=== PATIENT | female | born 1990 | race Caucasian/White ===

== ENCOUNTER 2016-12-22 09:00 | Outpatient (CLI) | payer OTHER ==
[~2016-12-22] VITALS: Ht 160 cm; Wt 131.5 kg
[2016-12-22 09:06] VITALS: BP 147/93
[2016-12-22] MEDS ORDERED: LEVO150T6 PO (09:13)
[2016-12-22 09:28] LABS: BASOPHILS % (AUTO) 0 % (0-10); EOSINOPHILS # (AUTO) 0.3 10^3/uL (0.0-0.3); EOSINOPHILS % (AUTO) 3 % (0-10); LYMPHOCYTES # (AUTO) 1.7 X 10^3 (1.0-4.0); LYMPHOCYTES % (AUTO) 18 % (12-44); MEAN CORPUSCULAR HEMOGLOBIN 31 PG (25-34); MEAN CORPUSCULAR HGB CONC 33 G/DL (32-36); MEAN CORPUSCULAR VOLUME 96 FL (80-99); MEAN PLATELET VOLUME 9.6 FL (7.4-10.4); MONOCYTES # (AUTO) 0.5 X 10^3 (0.0-1.0); MONOCYTES % (AUTO) 5 % (0-12); NEUTROPHILS # (AUTO) 6.9 X 10^3 (1.8-7.8); NEUTROPHILS % (AUTO) 73 % (42-75); PLATELET COUNT 264 10^3/uL (130-400); RED BLOOD COUNT 3.98 10^6/uL (4.35-5.85); RED CELL DISTRIBUTION WIDTH 15.6 % (10.0-14.5); WHITE BLOOD COUNT 9.5 10^3/uL (4.3-11.0)
== END 2016-12-22 09:20 | disposition home or self-care (01) ==
LOC: PREOP 09:00
PROVIDERS: ATTEND Surgery
DX: Z01.812 Encounter for preprocedural laboratory examination (principal); Z11.2 Encounter for screening for other bacterial diseases; K80.20 Calculus of gallbladder without cholecystitis without obstruction
CPT/HCPCS: 36415; 85025; 87081

== ENCOUNTER 2016-12-29 10:08 | Day surgery (SDC) | payer OTHER ==
[~2016-12-29] VITALS: Ht 160 cm; Wt 131.5 kg
[2016-12-29 10:08] VITALS: BP 171/92
[~2016-12-29 10:08] MED LIST: LEVO150T6 PO
[2016-12-29] MEDS ORDERED: ceFAZolin 2 GM/NS 50 ML IV ONE (10:45)
[2016-12-29] MEDS ORDERED: MIDAZOLAM 2 MG/2 ML (VERSED) VIAL IV ONE (11:00)
[2016-12-29] MEDS: LACTATED RINGERS 1,000 ML IV PRN ×3 (11:21→14:11)
[2016-12-29] MEDS ORDERED: SEVOFLURANE (ULTANE) 15 ML INHAL SOLN ONE ×4 (11:35→13:54)
[2016-12-29] MEDS ORDERED: SUCCINYLCHOLINE INJ 100 MG/5 ML SYR ONE (11:35)
[2016-12-29] MEDS ORDERED: LIDOCAINE PF 2% 5 ML (XYLOCAINE) VIAL ONE (11:35)
[2016-12-29] MEDS ORDERED: LACTATED RINGERS 1,000 ML IV ONE ×3 (11:35→14:06)
[2016-12-29] MEDS ORDERED: ROCURONIUM 50 MG/5 ML (ZEMURON) VIAL IV ONE (11:35)
[2016-12-29] MEDS ORDERED: proPOfol 200 MG/20 ML (DIPRIVAN) VIAL IV ONE (11:35)
[2016-12-29] MEDS ORDERED: fentaNYL INJECTION 100 MCG/2 ML AMP ONE ×3 (11:36→14:43)
[2016-12-29] MEDS ORDERED: MIDAZOLAM 2 MG/2 ML (VERSED) VIAL ONE (11:36)
[2016-12-29] MEDS ORDERED: LIDOCAINE/EPI 1%-1:100,000 (XYLOCAINE) 20ML ONE (11:44)
--- NOTE | 2016-12-29 12:14 | Progress Note-Pre Operative ---
Pre-Operative Progress Note H&P Reviewed The H&P was reviewed, patient examined and no changes noted. Date H&P Reviewed: December 29, 2016 Time H&P Reviewed: 12:08 Pre-Operative Diagnosis: Cholelithiasis/Cholecystitis KOLBY DUTTON DO December 29, 2016 12:14
[2016-12-29] MEDS ORDERED: ceFAZolin 1,000 MG (ANCEF) VIAL ONE (12:54)
[2016-12-29] MEDS ORDERED: ONDANSETRON 4 MG/2 ML (SDV) Z0FRAN ONE ×2 (12:54→14:22)
[2016-12-29] MEDS ORDERED: GLYCOPYRROLATE 0.2 MG/ML (ROBINUL) 2 ML VIAL ONE (12:55)
[2016-12-29] MEDS ORDERED: NEOSTIGMINE (BLOXIVERZ ) 1 MG/1ML 10 ML VIAL ONE (12:55)
[2016-12-29] MEDS ORDERED: fentaNYL INJECTION 100 MCG/2 ML AMP IVP PRN (13:00)
[2016-12-29] MEDS ORDERED: ONDANSETRON 4 MG/2 ML (SDV) Z0FRAN IVP PRN (13:00)
[2016-12-29] MEDS ORDERED: MEPERIDINE (DEMEROL) INJ 50 MG/ML ONE (13:24)
[2016-12-29] MEDS ORDERED: morphine INJ 10 MG/ML 1ML (SYR OR VIAL) ONE (13:24)
--- NOTE | 2016-12-29 13:38 | Progress Note-Post Operative ---
Post-Operative Progess Note Surgeon (s)/Welt Rougher (s) Surgeon KOLBY DUTTON DO Welt Rougher: [place]ora Pre-Operative Diagnosis Cholelithiasis/Cholecystitis Post-Operative Diagnosis Same + adhesions, [facility] Procedure & Operative Findings Date of Procedure 12/29/16 Procedure Performed/Findings Lap Christina with IOC Anesthesia Type GET Estimated Blood Loss Estimated blood loss (mL): less than 10ml Specimens/Packing Specimens Removed GB and contents KOLBY DUTTON DO December 29, 2016 13:38
[2016-12-29] MEDS ORDERED: HYDR-3820 PO (13:39)
--- NOTE | 2016-12-29 13:41 | Discharge Inst-Surgical ---
Discharge Inst-Surgical Depart Medication/Instructions New, Converted or Re-Newed RX: RX Given to Pt/Family Patient Instructions Follow up Appt: Make appointment for 1 week; [phone]. Instructions: No lifting greater than 10 pounds. No strenuous activity. May shower in 24 hours, no tub bath or soaking. Use incentive spirometer at home as directed. No Smoking Skin/Wound Care: May remove bandages. You have Dermabond over incision on, it will fall off on its own. Symptoms to Report: Appetite Changes, Extremity Discoloration, Numbness/Tingling, Swelling Increased , Bleeding Excessive, Eyesight Changes, Pain Increased, Urine Color Change, Constipation(Persistent), Fever over 101 degree F, Pain/Pressure in chest, Urinating Difficulty, Cough Up/Vomit Blood, Heart Beat Irreg/Pounding, Pain/ Pressure in jaw, Vaginal Bleeding Increase, Cramps in feet or legs, Lightheadedness, Pain/Pressure in shoulder, Diarrhea(Persistent), Memory Changes Suddenly, Questions/Concerns, Weight gain consecutive days, Dizziness/ Fainting, Nausea/Vomiting, Shortness of Breath, Weight gain over 2 pounds. If eyes or skin turn yellow notify physician. If questions or concerns contact your physician Or seek help at emergency department. Activity Activity Instructions: Avoid Pulling & Pushing, Avoid Stress to Incision Driving Instructions: No Driving/Refer to Diet Discharge Diet: Avoid Fatty Foods, Low Fat/Low Cholesterol If Any Problems/Questions/Issu: Contact Your Physician, Go to Emergency Room Skin/Wound Care Infection Signs and Symptoms: Increased Redness, Foul Odor of Wound, Increased Drainage, Skin Itchy or Has a Rash, Increased Swelling, Temperature Above 101 F Wound Care Comment: Heating pad to neck or shoulder tonight for pain. Bathing Instructions: Shower Stitches/Kelsie/Dermabond Dis: Dermabond Ice Pack: Ice On and Off Site KOLBY DUTTON DO December 29, 2016 13:41
[2016-12-29] MEDS: MEPERIDINE (DEMEROL) INJ 50 MG/ML IVP PRN ×2 (13:57→14:02)
--- NOTE | 2016-12-29 14:16 | Diagnostic Imaging Report ---
INDICATION: Intraoperative cholangiogram. INDICATION: Abdominal pain. EXAMINATION: Laparoscopic cholecystectomy performed by Dr. Davies. FLUOROSCOPY TIME: 11 seconds. CONTRAST: 4 cc of Omnipaque 300 was administered. FINDINGS: The CBD is opacified and is normal in caliber. No filling defect is seen to suggest a stone. There is passage of contrast to the duodenum. IMPRESSION: No evidence of CBD stone or obstruction. Dictated by: Dictated on workstation # [id number]
[2016-12-29] MEDS: morphine INJ 10 MG/ML 1ML (SYR OR VIAL) IVP PRN ×2 (14:26→14:34)
[2016-12-29 15:05] VITALS: BP 119/67
[2016-12-29 15:40] VITALS: BP 145/81
[2016-12-29] MEDS ORDERED: HYDROcodone/APAP 10 MG/325 MG (LORTAB) TAB PO PRN (16:00)
[2016-12-29 16:45] VITALS: BP 133/76
[2016-12-29 17:10] VITALS: BP 133/76
--- NOTE | 2016-12-30 23:52 | OPERATIVE REPORT ---
DATE OF SERVICE: 12/29/2016 PREOPERATIVE DIAGNOSES: Cholelithiasis, cholecystitis. POSTOPERATIVE DIAGNOSES: Cholelithiasis, cholecystitis, fatty liver and umbilical hernia. PROCEDURE: Laparoscopic cholecystectomy with intraoperative cholangiogram. SURGEON: Otis Davies DO MUSEUM EDUCATOR: Chris Hines DO ANESTHESIA: General endotracheal tube with local lidocaine injected by myself. SPECIMEN: Gallbladder and contents. BLOOD LOSS: Less than 10 mL. FLUIDS: Per anesthesia. POSTOPERATIVE CONDITION: Stable. INDICATIONS FOR THE PROCEDURE: The patient has been having abdominal pain in right upper quadrant, use of fried and fatty foods, has had a couple weeks of severe episodes and had an ultrasound which showed no stones as well as thickened gallbladder wall and needed to get this removed. FINDINGS: The patient had adhesions of the gallbladder that are usually indicative of previous cholecystitis attacks. She also had very fatty liver and a large liver and she had umbilical hernia. PROCEDURE IN DETAIL: After informed consent was obtained, the patient was brought to the operating room and placed on the table in supine position. She was sterilely prepped and draped in normal fashion. Local lidocaine was used to infiltrate the skin above the umbilicus. I then made an incision with a #11 blade and carried down through the skin into the subcutaneous tissue, then debrided down to the subcutaneous tissue with Bovie electrocautery down to the fascia. The fascia was incised with Bovie electrocautery. I then bluntly entered the abdomen, swept the finger around, placed an 0 Vicryl [id number] suture and then placed an 11 mm trocar port under direct visualization. I created a pneumoperitoneum and then placed two more ports in a normal fascia using local lidocaine, an 11 blade for a stab incision and the VersaStep system, all done under direct visualization, one in the subxiphoid and one in the right upper quadrant. We placed a small 3 mm port also in the right upper quadrant using local lidocaine just to half stab incision and then inserted the trocar under direct visualization. The patient was then placed reverse Trendelenburg and slightly rotated to the left. It was visualized at the top of the gallbladder and grasped at the fundus and taken it in a superior direction and started taken down the adhesions from the gallbladder with a Bovie electrocautery as well as blunt dissection. Very big fatty liver was kind of in our way as well as lateral omental fat and I elected to place another 3 mm port to the right of the umbilicus and to hold the fat and abdominal contents out of the way, grasp the gallbladder and push superiorly and then able to start dissecting out the cystic duct and grasped and brought the gallbladder to the Majano's pouch and pull in the inferolateral direction and start dissecting out the cystic duct and the cystic artery. I clipped the cystic duct once proximally and clipped the cystic artery once proximally and twice distally, cut the cystic duct long-term through with Metzenbaum scissors and placed a cholangiogram catheter, shot a cholangiogram and got good spillage of dye down the common bile duct and up into the common hepatic as well as left and right hepatic and down into the small intestine. At this point, we removed cholangiogram catheter and placed 2 clips in the proximally on the cystic duct and cut the cystic duct and cystic artery with Metzenbaum scissors. I then started removing the gallbladder from the bed of the liver with L hook cautery. Once it was completely removed, placed a baggy in the abdomen, placed the gallbladder in the bag and then removed this through a supraumbilical incision. I placed the port back in the abdomen, copiously irrigated with normal saline and suctioned this out. Hemostasis was obtained in the bed liver with Bovie electrocautery. No bleeding at the end of the case. I looked around for a small umbilical hernia. No other obvious pathology, but did not remove any of the omental or intestine. The patient was then placed supine and removed all ports under direct visualization allowed the pneumoperitoneum to escape as well as suctioned it out. I then closed the supraumbilical incision with 0 Vicryl suture, closing the fascia with 0 Vicryl previously placed. We copiously irrigated all incisions with normal saline, closing the 2 small 5 mm incisions with single interrupted 4-0 undyed Monocryl subcuticular stitches. I closed the supraumbilical incision with 3 interrupted 4-0 undyed Monocryl subcuticular stitches and then 2 small half stab incisions were closed with just Dermabond. The other areas were cleaned and dried and then also Dermabond was used to close. The patient was then transferred to recovery room in stable condition. Sponge, instrument and needle counts were correct at the end of the case. Dr. Hines assisted in this case to make incisions, place ports, hold the gallbladder as well as help with visualization and identification. Job ID: [id number] DocumentID: [id number] Dictated Date: 12/30/2016 11:32:01 Public Affairs Officer Date: 12/30/2016 19:02:42 Dictated By: OTIS DAVIES DO
== END 2016-12-29 17:10 | disposition home or self-care (01) ==
LOC: SDC 10:08 → EDBD 12:00 → SDC 17:10
PROVIDERS: ATTEND Surgery
DX: K80.10 Calculus of gallbladder with chronic cholecystitis without obstruction (principal); K42.9 Umbilical hernia without obstruction or gangrene; K76.0 Fatty (change of) liver, not elsewhere classified; E66.01 Morbid (severe) obesity due to excess calories; Z68.43 Body mass index [BMI] 50.0-59.9, adult
CPT/HCPCS: 84703; 94664